=== PATIENT | male | born 1940 | race African-American/Black ===

== ENCOUNTER → 2018-04-16 | Outpatient (CLI) | payer MEDICARE | LOC: M.MRI 16:15 | DX: S83.231A Complex tear of medial meniscus, current injury, right knee, initial encounter (principal); S83.281A Other tear of lateral meniscus, current injury, right knee, initial encounter; M25.461 Effusion, right knee; M17.11 Unilateral primary osteoarthritis, right knee; M22.41 Chondromalacia patellae, right knee; G89.29 Other chronic pain; I25.10 Atherosclerotic heart disease of native coronary artery without angina pectoris; I42.9 Cardiomyopathy, unspecified; E79.0 Hyperuricemia without signs of inflammatory arthritis and tophaceous disease; X58.XXXA Exposure to other specified factors, initial encounter; Y93.89 Activity, other specified; Y92.89 Other specified places as the place of occurrence of the external cause; Y99.8 Other external cause status ==

== ENCOUNTER → 2019-01-07 | Outpatient (CLI) | payer MEDICARE ==
--- NOTE | 2019-01-07 13:39 | 2DMMODE ---
[place] [address] 2 D/M-MODE ECHOCARDIOGRAM Name: SHILOHMIKHAIL Room: [facility]#: [id number] Admission: 01/07/19 Attend Phys: Uriel Reed, Discharge: Date of : 40 Date of Service: 01/07/19 1339 Report #: [id number] THIS REPORT FOR: //name// APPROVED REPORT Study performed: 01/07/2019 10:11:39 EXAM: Comprehensive 2D, Doppler, and color-flow Echocardiogram Patient Location: Out-Patient Status: routine BSA: 2.04 HR: 66 bpm Rhythm: NSR Other Information Study Quality: Good Indications Cardiomyopathy 2D Dimensions IVSd: 8.23 (7-11mm) LVOT Diam: 20.02 (18-24mm) LVDd: 55.38 mm PWd: 8.12 (7-11mm) Ascending Ao: 42.59 (22-36mm) LVDs: 41.77 (25-40mm) Aortic Root: 41.21 mm Volumes Left Atrial Volume (Systole) LA ESV Index: 29.30 mL/m2 Aortic Valve AoV Peak Eladio.: 2.55 m/s AO Peak Gr.: 26.10 mmHg LVOT Max P.88 mmHg AO Mean Gr.: 16.15 mmHg LVOT Mean P.55 mmHg LVOT Max V: 1.21 m/s AO V2 VTI: 47.82 cm LVOT Mean V: 0.72 m/s ANUSHKA (VTI): 1.51 cm2 LVOT V1 VTI: 23.00 cm AI Lucas: 1.61 m/s2 AI PHT: 762.50 ms Mitral Valve E/A Ratio: 0.73 [place] [address] 2 D/M-MODE ECHOCARDIOGRAM Name: MIKHAIL MATAMOROS Room: [facility]#: [id number] Admission: 01/07/19 Attend Phys: Uriel Reed, Discharge: Date of : 40 Date of Service: 01/07/19 1339 Report #: [id number] MV Decel. Time: 356.24 ms MV E Max Eladio.: 0.91 m/s MV PHT: 103.31 ms MVA (PHT): 2.13 cm2 TDI E/Lateral E': 13.00 E/Medial E': 13.00 Medial E' Eladio.: 0.07 m/s Lateral E' Eladio.: 0.07 m/s Pulmonary Valve PV Peak Eladio.: 1.13 m/s PV Peak Gr.: 5.11 mmHg Tricuspid Valve RAP Estimate: 5.00 mmHg TR Peak Gr.: 29.42 mmHg RVSP: 34.00 mmHg PA Pressure: 34.00 mmHg Left Ventricle The left ventricle is normal size. There is normal LV segmental wall motion. Mild concentric left ventricular hypertrophy. Left ventricular systolic function is mildly decreased. LVEF is 45-50%. Grade I - abnormal relaxation pattern. Right Ventricle The right ventricle is normal size. The right ventricular systolic function is normal. Atria The left atrium size is normal. The right atrium size is normal. Aortic Valve Moderate aortic valve sclerosis. Mild aortic regurgitation. Mild aortic stenosis. Mitral Valve Mild mitral annular calcification. Mild mitral regurgitation. No evidence of mitral valve stenosis. Tricuspid Valve The tricuspid valve is normal in structure. Mild tricuspid regurgitation. Mild pulmonary hypertension. Pulmonic Valve The pulmonary valve is normal in structure. [place] [address] 2 D/M-MODE ECHOCARDIOGRAM Name: MIKHAIL MATAMOROS Ravindra Room: [facility]#: [id number] Admission: 01/07/19 Attend Phys: Uriel Reed, Discharge: Date of : 40 Date of Service: 01/07/19 1339 Report #: [id number] valvular regurgitation. Great Vessels The aortic root is normal in size. IVC is normal in size and collapses >50% with inspiration. Pericardium There is no pericardial effusion. <Conclusion> The left ventricle is normal size. Mild concentric left ventricular hypertrophy. Left ventricular systolic function is mildly decreased. LVEF is 45-50%. Grade I - abnormal relaxation pattern. The right ventricle is normal size. The left atrium size is normal. Moderate aortic valve sclerosis. Mild aortic regurgitation. Mild aortic stenosis. Mild mitral annular calcification. Mild mitral regurgitation. No evidence of mitral valve stenosis. The tricuspid valve is normal in structure. Mild tricuspid regurgitation. Mild pulmonary hypertension. IVC is normal in size and collapses >50% with inspiration. There is no pericardial effusion. There is normal LV segmental wall motion. <ELECTRONICALLY SIGNED> By: Simon Tolentino MD, FACC 01/07/19 1339 1339 1339 Simon Tolentino MD, FACC /INF
--- NOTE | 2019-01-07 16:49 | CARDNUC ---
[place] [address] CARDIAC NUCLEAR IMAGING REPORT Name: MIKHAIL MATAMOROS Room: [facility]#: [id number] Admission: 01/07/19 Attend Phys: Uriel Reed, Discharge: Date of : 40 Date of Service: 01/07/19 1649 Report #: [id number] THIS REPORT FOR: //name// ADDENDUM APPROVED REPORT Study performed: 01/07/2019 09:47:03 Exam: Nuclear Stress Test Indication: Chest pain Patient Location: Out-Patient Stress Tech: Hailee Anderson Stress Nurse: Grace Man RN Ht: 5 ft 7 in Wt: 207 lbs BSA: 2.05 m2 BMI: 32.41 Medical History Medical History: aaa, cardiomyopathty, hyperuricemia, hyperlipidemia, hypertension Medications: asa, lasix, lisinopril, digoxin, carvedilol, atorvastatin Allergies: nkda Cardiac Risk Factors: age, hyperlipidemia, hypertension, former tobacco, Exercise History: Indeterminate Meds Held (24 hrs): Carvedilol carvedilol held 12 hrs only Stress Test Details Stress Test: Pharmacologic stress testing performed using 0.4 mg of regadenoson per 5 mL given IV over 10 seconds. Reason for pharmacologic stress test: physical limitation. HR Resting HR: 59 bpm Max Heart Rate (APMHR): 142 bpm Max HR Achieved: 72 bpm Target HR (85% APMHR): 120 bpm % of APMHR: 50 Recovery HR: 71 bpm HR response to stress: Normal HR response to stress BP Resting BP: 117/79 mmHg Max BP: 128/77 mmHg BP response to stress: [place] [address] CARDIAC NUCLEAR IMAGING REPORT Name: MIKHAIL MATAMOROS Ravindra Room: [facility]#: [id number] Admission: 01/07/19 Attend Phys: Uriel Reed, Discharge: Date of : 40 Date of Service: 01/07/19 1649 Report #: [id number] stress. ECG Resting ECG: Sinus Rhythm, NSSTT changes Stress ECG: Sinus Rhythm, NSSTT changes ST Change: None Arrhythmia: None Recovery ECG: Sinus Rhythm, NSSTT changes Recovery ST Change: None Recovery Arrhythmia: None Clinical Reason for Termination: Completed protocol Stress Symptoms: Chest pain, dizziness Exercise duration: 0 min sec Exercise capacity: 1 METs Nurse Comments unable to do walking cyndi due to patients inability to walk on treadmill safely. pt also has murmer over aortic valve Stress ECG Conclusion Normal hemodynamic response to pharmacologic stress. Non-diagnostic EKG stress due to failure to attain target HR. NM EXAM: Myocardial Perfusion REST/STRESS Resting Data Rest SPECT myocardial perfusion imaging was performed in supine position 30 minutes following the intravenous injection of 10.6 mCi of Tc-99m Sestamibi. Time of rest injection: 08:20 The images were gated to evaluate regional wall motion and calculate left ventricular ejection fraction. Administration Route: IV Administration Site: Right AC Pharmacologic Stress Pharmacologic stress test was performed by injecting Regadenoson 0.4 mg IV push followed by the intravenous injection of 30.7 mCi of Tc-99m Sestamibi. Time of stress injection: 10:00 Administration Route: IV Administration Site: Right AC Heart Rate at time of stress injection: 72 bpm. Gated Stress SPECT was performed 45 minutes [place] [address] CARDIAC NUCLEAR IMAGING REPORT Name: MIKHAIL MATAMOROS Room: [facility]#: [id number] Admission: 01/07/19 Attend Phys: Uriel Reed, Discharge: Date of : 40 Date of Service: 01/07/19 1649 Report #: [id number] The images were gated to evaluate regional wall motion and calculate left ventricular ejection fraction. Prone imaging was performed. Study Quality Study: Good Artifact: Mild Soft tissue attenuation artifact Lung Uptake: Normal Study Data At rest, the left ventricular ejection fraction was 47%.. Post stress, the left ventricular ejection was 47%.. TID = 0.96. Perfusion The resting images demonstrate a small in size and mild to moderate intensity apical defect compatible with apical notching or apical thinning. There is also a moderate in size and mild to moderate intensity inferior defect. The post stress images demonstrate a very small very mild apical defect again compatible with apical notching. There is also a moderate in size and mild in intensity inferior defect. Prone images were obtained and demonstrate a small mild apical defect and a small very mild inferior defect. There are no reversible defects. There is no evidence of myocardial ischemia. Images were reviewed using [employer] Software. Wall Motion No segmental wall motion abnormalities are seen. There is global hypokinesis. Nuclear Conclusion ECG Findings: non-diagnostic Clinical Findings: negative for ischemia Nuclear Findings: negative for ischemia Exercise Capacity: not assessed Left Ventricular Function: abnormal Risk Study: low The Lexiscan cartilage stress test demonstrates no evidence of myocardial ischemia. Overall this is a low risk study. The findings are are consistent with a nonischemic cardiomyopathy. <Conclusion> [place] [address] CARDIAC NUCLEAR IMAGING REPORT Name: MIKHAIL MATAMOROS Room: [facility]#: [id number] Admission: 01/07/19 Attend Phys: Uriel Reed, Discharge: Date of : 40 Date of Service: 01/07/19 1649 Report #: [id number] Normal hemodynamic response to pharmacologic stress. Non-diagnostic EKG stress due to failure to attain target HR. <ELECTRONICALLY SIGNED> By: Prabhjot Elder MD, [facility] 01/07/191648 48 48 Prabhjot Elder MD, [facility] /INF
== END ==
LOC: M.RAD 07:30 → M.NUC 08:00
DX: I08.3 Combined rheumatic disorders of mitral, aortic and tricuspid valves (principal); I42.9 Cardiomyopathy, unspecified; I25.10 Atherosclerotic heart disease of native coronary artery without angina pectoris; E79.0 Hyperuricemia without signs of inflammatory arthritis and tophaceous disease; I71.4 Abdominal aortic aneurysm, without rupture; I11.9 Hypertensive heart disease without heart failure; J90 Pleural effusion, not elsewhere classified; M47.819 Spondylosis without myelopathy or radiculopathy, site unspecified; E78.5 Hyperlipidemia, unspecified; Z79.899 Other long term (current) drug therapy; I27.20 Pulmonary hypertension, unspecified